=== PATIENT | male | born 1970 | race Caucasian/White ===

== ENCOUNTER → 2018-08-15 | Outpatient (CLI) | payer BC ==
[~2018-08-15] VITALS: Ht 175.3 cm; Wt 130.6 kg
[~2018-08-15] MED LIST: CRESTOR20 MG PO; CRESTOR40 MG PO; FISH OIL 1000MG1 CAP PO; GLUCOPHAGE1000 MG PO; LIPITOR20 MG PO; PROAIR HFA0.09 MG/AC IH; REGLAN 10MG10 MG/TAB PO; RT ADVAIR 128 DISKUS IH; SINGULAIR 110 MG/TAB PO; TRICOR 48MG48 MG PO
[2018-08-15 10:33] VITALS: BP 114/90; PULSE 92
== END ==
LOC: LIGHT 10:09
DX: E11.9 Type 2 diabetes mellitus without complications (principal); E78.00 Pure hypercholesterolemia, unspecified; E66.9 Obesity, unspecified; Z71.3 Dietary counseling and surveillance
CPT/HCPCS: G0463

== ENCOUNTER → 2018-09-20 | Outpatient (CLI) | payer BC ==
[~2018-09-20] VITALS: Ht 175.3 cm; Wt 131.3 kg
[~2018-09-20] MED LIST changes: -FISH OIL 1000MG1 CAP PO; +MASON NATURAL1200 MG PO
[2018-09-20 10:10] VITALS: BP 136/86; PULSE 92
== END ==
LOC: LIGHT 09-18 14:36
DX: E88.81 Metabolic syndrome and other insulin resistance (principal); E11.65 Type 2 diabetes mellitus with hyperglycemia; E78.00 Pure hypercholesterolemia, unspecified; E66.01 Morbid (severe) obesity due to excess calories; Z68.42 Body mass index [BMI] 45.0-49.9, adult; Z71.3 Dietary counseling and surveillance
CPT/HCPCS: G0463